=== PATIENT | female | born 1965 | race Caucasian/White ===

== ENCOUNTER 2023-01-27 20:15 | Emergency (ER) | payer OTHER, MEDICARE ==
[2023-01-27 20:27] VITALS: TEMP 98.7
[2023-01-27] MEDS ORDERED: SODIUM CHLORIDE 0.9% 1,000 ML IV STA (20:52)
[2023-01-27] MEDS ORDERED: MORPHINE SULFATE 4 MG/ML SYRINGE IV STA (20:52)
[2023-01-27] MEDS ORDERED: ONDANSETRON 4 MG/2 ML VIAL IVP STA (20:52)
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
[2023-01-27] MEDS ORDERED: LORazepam 2 MG/ML INJ IV STA (20:53)
[2023-01-27 21:31] LABS: Basophils % (A) 0 %; Eosinophils # (A) 0.2 k/uL (0-0.7); Eosinophils % (A) 3 %; HCT 41.3 % (34.0-46.0); HGB 13.5 gm/dL (11.4-16.0); Lymphocytes # (A) 1.8 k/uL (1.0-4.8); Lymphocytes % (A) 22 %; MCH 32.5 pg (25.0-35.0); MCHC 32.7 g/dL (31.0-37.0); MCV 99.5 fL (80.0-100.0); Mean Platelet Volume 8.3; Monocytes # (A) 0.4 k/uL (0-1.0); Monocytes % (A) 5 %; Neutrophils # (A) 5.8 k/uL (1.3-7.7); Neutrophils % (A) 69 %; Platelet Count 194 k/uL (150-450); RBC 4.15 m/uL (3.80-5.40); RDW 12.3 % (11.5-15.5); WBC 8.4 k/uL (3.8-10.6)
[2023-01-27 21:42] LABS: ALT 28 U/L (4-34); AST 68 U/L (14-36); African American GFR (CKD) 77 (>60 ml/min/1.73 sqM); Albumin 4.7 g/dL (3.5-5.0); Alkaline Phosphatase 109 U/L (38-126); Anion Gap 6 mmol/L; Blood Urea Nitrogen 20 mg/dL (7-17); Calcium 9.5 mg/dL (8.4-10.2); Carbon Dioxide 32 mmol/L (22-30); Chloride 108 mmol/L (98-107); Glucose 75 mg/dL (74-99); Magnesium 2.6 mg/dL (1.6-2.3); Non-African American GFR(CKD) 67 (>60 ml/min/1.73 sqM); Phosphorus 3.8 mg/dL (2.5-4.5); Potassium 3.8 mmol/L (3.5-5.1); Sodium 146 mmol/L (137-145); Total Bilirubin 0.7 mg/dL (0.2-1.3)
[2023-01-27 21:49] LABS: NT-Pro-B-Type Natriuretic Pept 975 pg/mL
[2023-01-27 22:15] LABS: INR 0.9 (<1.2); Prothrombin Time 9.9 sec (9.0-12.0)
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
[2023-01-28] MEDS ORDERED: HYDROmorphone 1 MG/ML 1 ML SYRINGE IVP STA (00:35)
[2023-01-28 01:09] VITALS: BP 116/68; PULSE 72; RESP 16
== END 2023-01-28 01:12 | disposition home or self-care (01) ==
LOC: EC 20:15
DX: R07.9 Chest pain, unspecified (principal); F17.200 Nicotine dependence, unspecified, uncomplicated; Z88.0 Allergy status to penicillin; Z86.59 Personal history of other mental and behavioral disorders; V49.40XA Driver injured in collision with unspecified motor vehicles in traffic accident, initial encounter
CPT/HCPCS: 36415; 93005; 83880; 80053; 82550; 82553; 83605; 83735; 84100; 84484; 85025; 85610; 85730; 72129; 72125; 72132; 70450; 71260; 74177; 99285; 96374; 96375 ×2; 96361 ×4; J2060; J2270; J1170; Q9967